=== PATIENT | female | born 1960 | race Caucasian/White ===

== ENCOUNTER → 2020-02-21 17:37 | Outpatient (CLI) | payer MEDICAID, SELFPAY ==
[2020-02-21 19:25] LABS: Hemoglobin A1C 6.8 % (4.0-6.0)
== END ==
PROVIDERS: Visit Provider Family Medicine
DX: E11.9 Type 2 diabetes mellitus without complications (principal)
CPT/HCPCS: 83036

== ENCOUNTER → 2020-04-15 14:41 | Outpatient (CLI) | payer MEDICAID, SELFPAY ==
[2020-04-21 19:07] LABS: Aspergillus flavus Negative (Neg:<1:1); Aspergillus fumigatus Negative (Neg:<1:1); Aspergillus niger Negative (Neg:<1:1); Blastomyces Antibody Negative (Neg:<1:1); Histoplasma Gal'mannan Ag Ur <0.5 (<0.5 ng/mL)
== END ==
PROVIDERS: Visit Provider Internal Medicine Pulmonary Disease
DX: J84.10 Pulmonary fibrosis, unspecified (principal)
CPT/HCPCS: 36415; 86606; 86612; 86698; 87385

== ENCOUNTER → 2020-05-01 14:30 | Outpatient (CLI) | payer MEDICAID, SELFPAY ==
--- NOTE | 2020-05-01 | CT_ITS ---
PROCEDURE: CT CHEST WO CON CLINICAL INDICATION: PULMONARY LESION pulmonary lesion smoker no prior studies histoplasmosis infection, pulmonary cavitary lesions COMPARISON: No exams were available for comparison TECHNIQUE: Axial images obtained with sagittal and coronal reformats. All CT scans at the facility use one or more dose reduction, viz: automated exposure control, ma/kV adjustment per patient size (including targeted exams where dose is matched to indication, i.e. head), or iterative reconstruction technique. FINDINGS: There are no old exams available for comparison. These would be very helpful if available. No mediastinal or hilar mass. There is a small hiatal hernia with nonspecific thickening of the esophagus and the GE junction. No mediastinal or hilar adenopathy. There are few small mediastinal lymph nodes. There are numerous cavitary lesions in both lungs. The largest cavitation is in the upper lobe on the left measuring 7.2 by 6.9 by 5.6 cm. Wall of this cavity is somewhat thickened and nodular with the wall measuring up 2 8 mm in thickness. There is suggestion of a small air-fluid level posteriorly within this cavity. There are other smaller cavities in the right upper lobe and left lower lobe. There is dense consolidation within both lower lobes.. There are multiple central lucencies within these areas of consolidation which could be related to areas of cavitation/necrosis or air alveolar g. Small nodular densities noted in the right upper lobe inferiorly measuring 8 mm with a central cavitation. No layering pleural effusions are evident. There is evidence of COPD with hyperinflation. Centrilobular emphysematous changes are noted. There is some mild bronchial thickening. In the left upper lobe there is a 9 mm nodule with possible minimal developing cavitation superiorly cavitating nodules present in the left lower lobe anteriorly at 10 mm. Upper abdominal images show prior cholecystectomy. No acute bony anomalies are evident IMPRESSION: 1. Numerous cavitating lesions along with bilateral areas of consolidation. These findings are compatible with active histoplasmosis or tuberculosis. 2. COPD/centrilobular emphysema 3. There is thickening of the esophagus and gastroesophageal junction. This is nonspecific and may only be due to nondistention. Neoplasm or esophagitis is also considered in the differential diagnosis. Dictated by: Robbin Olvera MD 05/02/2020 11:26 Robbin Olvera MD in [place] 05/02/2020 11:26
== END ==
PROVIDERS: PCP Family Medicine; Visit Provider Internal Medicine Pulmonary Disease
DX: J98.4 Other disorders of lung (principal)
CPT/HCPCS: 71250; 87070; 87116; 87186; 87205; 87206

== ENCOUNTER → 2020-06-20 11:57 | Outpatient (CLI) | payer MEDICAID, SELFPAY ==
[2020-06-20 14:54] LABS: Chloride 100 mmol/L (98-107); Sodium 135 mmol/L (136-145)
[2020-06-20 14:56] LABS: Alanine Aminotransferase 20 U/L (12-78); Aspartate Amino Transferase 26 U/L (14-36); Blood Urea Nitrogen 20 mg/dl (7-17); Estimated Glomerular Filt Rate 57 ml/min (>60); GFR (African American) 68 ML/MIN (>60)
[2020-06-20 14:57] LABS: Albumin Level 3.9 g/dl (3.5-5.0); Albumin/Globulin Ratio 1.2 (1.1-1.8); Alkaline Phosphatase 120 U/L (38-126); Bilirubin,Total 0.2 mg/dl (0.2-1.3); Calcium 9.4 mg/dl (8.4-10.2); Carbon Dioxide 29 mmol/L (22.0-30.0); Globulin 3.3 g/dL (1.3-3.2); Glucose 92 mg/dl (74-100); Total Protein,Serum 7.2 g/dl (6.3-8.2)
== END ==
PROVIDERS: Visit Provider Internal Medicine Pulmonary Disease
DX: J98.4 Other disorders of lung (principal); B39.2 Pulmonary histoplasmosis capsulati, unspecified
CPT/HCPCS: 36415; 80053; 80299

== ENCOUNTER → 2020-08-06 13:28 | Outpatient (CLI) | payer MEDICAID, SELFPAY | PROVIDERS: Visit Provider Internal Medicine Pulmonary Disease | DX: Z51.81 Encounter for therapeutic drug level monitoring (principal) | CPT/HCPCS: 36415; 80299 ==

== ENCOUNTER → 2020-08-19 13:30 | Outpatient (CLI) | payer MEDICAID, SELFPAY ==
[2020-08-19 14:41] LABS: Chloride 99 mmol/L (98-107); Potassium 4.9 mmoL/L (3.5-5.1); Sodium 136 mmol/L (136-145)
[2020-08-19 14:43] LABS: Alanine Aminotransferase 14 U/L (12-78); Aspartate Amino Transferase 23 U/L (14-36); Blood Urea Nitrogen 19 mg/dl (7-17); Estimated Glomerular Filt Rate 64 ml/min (>60); GFR (African American) 77 ML/MIN (>60)
[2020-08-19 14:44] LABS: Albumin/Globulin Ratio 1.2 (1.1-1.8); Alkaline Phosphatase 128 U/L (38-126); Anion Gap 10.9 mEq/L (5-15); Bilirubin,Total 0.3 mg/dl (0.2-1.3); Calcium 10.1 mg/dl (8.4-10.2); Carbon Dioxide 31 mmol/L (22.0-30.0); Globulin 3.4 g/dL (1.3-3.2); Glucose 110 mg/dl (74-100); Total Protein,Serum 7.4 g/dl (6.3-8.2)
[2020-08-24 18:07] LABS: Histoplasma Gal'mannan Ag Ur <0.5 (<0.5 ng/mL)
== END ==
PROVIDERS: Visit Provider Internal Medicine Pulmonary Disease
DX: B39.2 Pulmonary histoplasmosis capsulati, unspecified (principal); J98.4 Other disorders of lung
CPT/HCPCS: 36415; 80053; 87040; 87385

== ENCOUNTER → 2020-09-12 13:05 | Outpatient (CLI) | payer MEDICAID, SELFPAY ==
--- NOTE | 2020-09-12 13:05 | CT_ITS ---
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 All CT scans at the facility use one or more dose reduction, viz: automated exposure control, ma/kV adjustment per patient size (including targeted exams where dose is matched to indication, i.e. head), or iterative reconstruction technique. FINDINGS: HEART AND MEDIASTINAL STRUCTURES: No mediastinal or hilar mass or adenopathy. LUNGS AND PLEURAL SPACES: Numerous areas of cavitation and consolidation are once again noted. The largest cavities in the left apex measuring 7 x 6.3 cm transverse and AP previously measuring 7 x 7.8 cm transverse and AP. The cody of the cavities are somewhat thickened as before. Additional thick-walled cavity is present in the right upper lobe measuring 6.6 by 2.5 cm not significantly changed in size. There is some increase in wall thickening versus posterior layering secretions in the posterior aspect of this lesion. A prominent area of consolidation is present in the right lower lobe. This has decreased in size. There are internal areas of cavitation within this area of consolidation. Centrilobular emphysematous changes are present. A nodular density is present in the left lower lobe measuring 3 by 1.5 cm and has developed since the previous exam. Other nodular areas have improved or resolved. Consolidation is present in the superior segment of the left lower lobe and in the left upper lobe posteriorly which has shown some improvement. There are multiple nodular opacities scattered throughout both lungs many of which are unchanged. Consolidation is present in the right upper lobe centrally slightly improved with some decrease in cavitation. BONY STRUCTURES: No acute bony abnormalities apparent. UPPER ABDOMEN: There is a small hiatal hernia. Nonspecific thickening of the esophagus. ADDITIONAL FINDINGS: No other significant abnormalities. IMPRESSION: Abnormal CT of the chest. There are multiple thick-walled cavities, areas of consolidation, and bilateral nodular lesions. There has been a mixed response with some improvement in cavitation and consolidation with some new nodular opacities noted as described above. There is underlying centrilobular emphysema. Persistent esophageal thickening with small hiatal hernia Dictated by: Robbin Olvera MD 09/13/2020 08:08 Robbin Olvera MD in [facility] 09/13/2020 08:08
--- NOTE | 2020-09-12 13:05 | MM_ITS ---
PROCEDURE: MM DIG SCREENING MAMM BI W/CAD Digital Breast Tomosynthesis Included CLINICAL INDICATION: screening There is a history of breast cancer in the patient's mother. COMPARISON: Previous films cannot be obtained TECHNIQUE: Standard CC and MLO images and 3D Tomosynthesis was obtained. R2 CAD reviewed. FINDINGS: Moderate diffuse somewhat heterogenic fibroglandular densities are seen in both breasts. There is minimal arterial calcification bilaterally. There is a small nodular density central portion right breast with primarily benign features however since there are no previous studies for comparison recommend the patient return for spot compression views and ultrasound for additional evaluation. There are no suspicious microcalcifications. There are fatty replaced nodes in both axilla. IMPRESSION: Moderate breast density with asymmetric density right breast BI-RAD Category: 0 Need Additional Imaging Evaluation FOLLOW-UP: IMM Immediate Follow-up Recommended (A letter has been sent to the patient regarding results of the study.) Dictated by: Dr. Janusz Bhagat MD 09/18/2020 08:37 Dr. Janusz Bhagat MD in [place] 09/18/2020 08:37
[2020-09-12 15:20] VITALS: PULSE 67; PULSE 69
== END ==
PROVIDERS: PCP Family Medicine; Visit Provider Internal Medicine Pulmonary Disease
DX: Z12.31 Encounter for screening mammogram for malignant neoplasm of breast (principal); B39.2 Pulmonary histoplasmosis capsulati, unspecified; J98.4 Other disorders of lung
CPT/HCPCS: 71250; 77063; 77067; 87070; 87205; 87220; 94060; 94640; 94726; 94729

== ENCOUNTER → 2020-10-16 13:37 | Outpatient (CLI) | payer MEDICAID, SELFPAY ==
--- NOTE | 2020-10-16 13:38 | US_ITS ---
PROCEDURE: MM DIG MAMM DX UNILAT RT CAD Digital Breast Tomosynthesis Included CLINICAL INDICATION: ABN MAMM RT BREAST COMPARISON: MG MM DIG SCREENING MAMM BI W/CAD from 09/12/2020 US US BREAST RT COMPLETE from 10/16/2020 TECHNIQUE: Standard CC and MLO images and 3D Tomosynthesis was obtained. R2 CAD reviewed. FINDINGS: There is average fibroglandular tissue. No suspicious nodule is evident. Spot-compression views show some asymmetry in the retroareolar region felt to represent fibroglandular tissue. Right breast ultrasound: At 3 o'clock there are 2 cysts 1 of which is septated and measures 8 mm and the adjacent cyst measures 4 mm. At 3 o'clock there is also some ductal dilatation. At 11 o'clock there is a 5 mm hypoechoic area which may be due to small cyst or fibroglandular tissue. IMPRESSION: Probably benign features of the right breast. Recommend six-month sonographic and mammographic follow-up. BI-RAD Category: 3 Probably Benign Finding Short Term Follow-up FOLLOW-UP: 6M 6Month Follow-up (A letter has been sent to the patient regarding results of the study.) Dictated by: Robbin Olvera MD 10/21/2020 10:52 Robbin Olvera MD in [place] 10/21/2020 10:52
== END ==
PROVIDERS: PCP Family Medicine; Visit Provider Family Medicine
DX: R92.8 Other abnormal and inconclusive findings on diagnostic imaging of breast (principal)
CPT/HCPCS: 76641; 77061; 77065; G0279

== ENCOUNTER → 2020-10-21 15:16 | Outpatient (CLI) | payer MEDICAID, SELFPAY ==
[2020-10-21 16:31] LABS: Chloride 105 mmol/L (98-107); Potassium 5.3 mmoL/L (3.5-5.1); Sodium 136 mmol/L (136-145)
[2020-10-21 16:33] LABS: Blood Urea Nitrogen 17 mg/dl (7-17); Estimated Glomerular Filt Rate 56 ml/min (>60); GFR (African American) 68 ML/MIN (>60)
[2020-10-21 16:34] LABS: Alanine Aminotransferase 16 U/L (12-78); Albumin Level 4.1 g/dl (3.5-5.0); Albumin/Globulin Ratio 1.3 (1.1-1.8); Alkaline Phosphatase 131 U/L (38-126); Anion Gap 10.3 mEq/L (5-15); Aspartate Amino Transferase 25 U/L (14-36); Bilirubin,Total 0.3 mg/dl (0.2-1.3); Carbon Dioxide 26 mmol/L (22.0-30.0); Globulin 3.2 g/dL (1.3-3.2); Total Protein,Serum 7.3 g/dl (6.3-8.2)
[2020-10-21 16:35] LABS: Calcium 10.1 mg/dl (8.4-10.2); Glucose 116 mg/dl (74-100)
[2020-10-21 16:40] LABS: C-Reactive Protein 1.5 mg/L (0-4)
== END ==
PROVIDERS: Visit Provider Internal Medicine Pulmonary Disease
DX: R06.00 Dyspnea, unspecified (principal); B39.2 Pulmonary histoplasmosis capsulati, unspecified
CPT/HCPCS: 36415; 80053; 86140

== ENCOUNTER → 2020-12-19 13:56 | Outpatient (CLI) | payer MEDICAID, SELFPAY ==
--- NOTE | 2020-12-19 13:56 | CT_ITS ---
PROCEDURE: CT CHEST WO CON CLINICAL INDICATION: Follow-up histoplasmosis with cough and chest pain Abnormal CT No new symptoms Prior 09/12/20 COMPARISON: CT CT CHEST WO CON from 09/12/2020 TECHNIQUE: Axial images obtained with sagittal and coronal reformats. All CT scans at the facility use one or more dose reduction, viz: automated exposure control, ma/kV adjustment per patient size (including targeted exams where dose is matched to indication, i.e. head), or iterative reconstruction technique. FINDINGS: HEART AND MEDIASTINAL STRUCTURES: No mediastinal or hilar mass. There is mild diffuse esophageal thickening. There is a small hiatal hernia. There are some contents within the esophagus. Reflux, dysmotility, or distal obstruction is a consideration. Barium swallow may provide further evaluation. LUNGS AND PLEURAL SPACES: COPD with centrilobular emphysema. Cavitation is present in the left upper lobe with a mildly thickened wall. The cavity is smaller compared to the previous exam measuring 6 x 5.7 cm previously measuring 7 x 6.4 cm. In the right apex previous area of cavitation now appears more solid measuring 6 by 2 cm previously 6.6 x 2.5 cm. There is a small area of cavitation anteriorly in this region. This may be fluid-filled as opposed to a partially aerated cavity as before. Satellite nodular densities project from this area. The numerous parenchymal opacities are once again noted in both lungs and do not appear significantly changed. The largest parenchymal opacities in the right lower lobe at 3.4 cm not significantly changed. There is some bronchiectasis anterior to this area with associated parenchymal opacification. This area is 4.4 cm and may be slightly smaller. Small satellite nodules are also present at this region. Scattered parenchymal opacities are present on the left. There is an area of cavitation with thick wall in the left lower lobe measuring 3 by 1 cm not significantly changed. A thick-walled cavity is present in the left upper lobe measuring 6 x 5.7 cm previously 7 x 6.4 cm. There is some nodularity of this cavity. Bronchiectasis is present in the left upper lobe posteriorly. Irregular cavity left lower lobe superior segment unchanged. No new nodular opacities are apparent. No effusions. BONY STRUCTURES: No acute bony abnormalities apparent. UPPER ABDOMEN: Unremarkable. ADDITIONAL FINDINGS: No other significant abnormalities. IMPRESSION: 1. Multiple thick-walled cavities with areas of bronchiectasis and nodular opacities as detailed above in keeping with patient's history of histoplasmosis. Overall the findings are slightly improved compared to the previous exam. 2. COPD/centrilobular emphysema. 3. Persistent esophageal thickening with debris in the esophagus suggesting delayed emptying or reflux. Dictated by: Robbin Olvera MD 12/20/2020 08:12 Robbin Olvera MD in [place] 12/20/2020 08:12
== END ==
PROVIDERS: PCP Family Medicine; Visit Provider Internal Medicine Pulmonary Disease
DX: B39.2 Pulmonary histoplasmosis capsulati, unspecified (principal); R91.1 Solitary pulmonary nodule
CPT/HCPCS: 71250

== ENCOUNTER → 2021-02-27 16:29 | Outpatient (CLI) | payer MEDICAID, SELFPAY ==
[2021-02-27 18:41] LABS: Alanine Aminotransferase 18 U/L (12-78); Albumin Level 4.6 g/dl (3.5-5.0); Alkaline Phosphatase 124 U/L (38-126); Aspartate Amino Transferase 26 U/L (14-36); Bilirubin,Direct 0.5 mg/dl (0.0-0.4); Bilirubin,Total 0.5 mg/dl (0.2-1.3); Blood Urea Nitrogen 18 mg/dl (7-17); Calcium 10.1 mg/dl (8.4-10.2); Carbon Dioxide 28 mmol/L (22.0-30.0); Chloride 96 mmol/L (98-107); Estimated Glomerular Filt Rate 23 ml/min (>60); GFR (African American) 27 ML/MIN (>60); Glucose 112 mg/dl (74-100); Sodium 134 mmol/L (136-145); Total Protein,Serum 7.9 g/dl (6.3-8.2)
== END ==
PROVIDERS: Family Medicine; Visit Provider Internal Medicine Pulmonary Disease
DX: J98.4 Other disorders of lung (principal); B39.9 Histoplasmosis, unspecified
CPT/HCPCS: 36415; 80048; 80076

== ENCOUNTER → 2021-02-27 17:27 | Outpatient (CLI) | payer MEDICAID, SELFPAY ==
[2021-02-27 19:58] LABS: Alanine Aminotransferase 17 U/L (12-78); Albumin Level 4.4 g/dl (3.5-5.0); Alkaline Phosphatase 117 U/L (38-126); Aspartate Amino Transferase 24 U/L (14-36); Bilirubin,Direct 0.5 mg/dl (0.0-0.4); Bilirubin,Total 0.5 mg/dl (0.2-1.3); Total Protein,Serum 7.6 g/dl (6.3-8.2)
== END ==
PROVIDERS: Internal Medicine Pulmonary Disease; Visit Provider Family Medicine
DX: B39.2 Pulmonary histoplasmosis capsulati, unspecified (principal)
CPT/HCPCS: 80076

== ENCOUNTER → 2021-03-13 17:00 | Outpatient (CLI) | payer MEDICAID, SELFPAY ==
[2021-03-13 17:29] LABS: Alanine Aminotransferase 11 U/L (12-78); Albumin Level 3.6 g/dl (3.5-5.0); Albumin/Globulin Ratio 1.2 (1.1-1.8); Alkaline Phosphatase 114 U/L (38-126); Anion Gap 9.9 mEq/L (5-15); Aspartate Amino Transferase 20 U/L (14-36); Bilirubin,Total 0.4 mg/dl (0.2-1.3); Blood Urea Nitrogen 24 mg/dl (7-17); Calcium 8.9 mg/dl (8.4-10.2); Carbon Dioxide 27 mmol/L (22.0-30.0); Chloride 104 mmol/L (98-107); Estimated Glomerular Filt Rate 56 ml/min (>60); GFR (African American) 68 ML/MIN (>60); Globulin 2.9 g/dL (1.3-3.2); Glucose 128 mg/dl (74-100); Potassium 4.9 mmoL/L (3.5-5.1); Sodium 136 mmol/L (136-145); Total Protein,Serum 6.5 g/dl (6.3-8.2)
== END ==
PROVIDERS: Visit Provider Family Medicine
DX: E11.9 Type 2 diabetes mellitus without complications (principal); E78.5 Hyperlipidemia, unspecified; J44.9 Chronic obstructive pulmonary disease, unspecified
CPT/HCPCS: 80053

== ENCOUNTER → 2021-04-29 14:13 | Outpatient (CLI) | payer MEDICAID, SELFPAY ==
[2021-04-29 14:46] LABS: ABG Base Excess 2.1 mmol/L (-2.4-2.3); ABG HCO3 26.2 mmhg (22.0-26.0); ABG Oxygen Saturation 94 % (90-100); ABG PCO2 39.6 mmhg (35.0-45.0); ABG PH 7.44 mmol/L (7.35-7.45); ABG TCO2 27.4 mmhg (23-27)
[2021-04-29 14:47] LABS: Allen's Test ACCEPTABLE; Oxygen 2LPM %; Source R RADIAL
[2021-04-29 15:31] LABS: Basophils % 0.2 % (0.1-2.0); Eosinophils # 0.2 K/mm3 (0.0-0.4); Eosinophils % 1.2 % (0.1-12.0); Hematocrit 39.8 % (37.0-47.0); Hemoglobin 12.5 g/dL (12.2-16.2); Lymphocytes # 1.8 K/mm3 (0.7-4.5); Lymphocytes % 14.4 % (10-50); Mean Corpuscular HGB Conc 31.3 g/dL (31.8-35.4); Mean Corpuscular Hemoglobin 27.9 pg (27.0-31.2); Mean Corpuscular Volume 89.2 fl (81-99); Mean Platelet Volume 8.4 fl (7.4-10.4); Monocytes # 0.7 K/mm3 (0.1-1.0); Monocytes % 5.6 % (1.7-9.3); Neutrophils # 10.1 K/mm3 (1.8-7.8); Neutrophils % 78.7 % (37.0-80.0); Platelet Count 310 K/mm3 (142-424); Red Blood Count 4.47 M/mm3 (4.20-5.40); Red Cell Distribution Width 14.1 % (11.5-17.5); White Blood Count 12.8 K/mm3 (4.8-10.8)
[2021-04-29 15:58] LABS: Alanine Aminotransferase 16 U/L (12-78); Albumin Level 3.4 g/dl (3.5-5.0); Alkaline Phosphatase 104 U/L (38-126); Aspartate Amino Transferase 20 U/L (14-36); Bilirubin,Indirect 0.3 mg/dL (0.0-0.9); Bilirubin,Total 0.3 mg/dl (0.2-1.3); Bilirubin,Unconjugated 0.3 mg/dL (0.0-1.1)
[2021-04-29 16:06] LABS: C-Reactive Protein 1.5 mg/L (0-4)
== END ==
PROVIDERS: Visit Provider Internal Medicine Pulmonary Disease
DX: R06.00 Dyspnea, unspecified (principal); J45.909 Unspecified asthma, uncomplicated; J98.4 Other disorders of lung
CPT/HCPCS: 36415; 80076; 82803; 85025; 86140

== ENCOUNTER → 2021-05-01 08:07 | Outpatient (CLI) | payer MEDICAID, SELFPAY ==
--- NOTE | 2021-05-01 08:13 | CT_ITS ---
PROCEDURE: CT CHEST WO CON CLINICAL INDICATION: Pulmonary Histoplasmosis COMPARISON: CT CT CHEST WO CON from 05/01/[address] CHEST WO CON from 12/19/2020 TECHNIQUE: Axial images obtained with sagittal and coronal reformats. All CT scans at the facility use one or more dose reduction, viz: automated exposure control, ma/kV adjustment per patient size (including targeted exams where dose is matched to indication, i.e. head), or iterative reconstruction technique. FINDINGS: HEART AND MEDIASTINAL STRUCTURES: No mediastinal mass or hilar mass apparent. There is mild thickening of the esophagus throughout its course nonspecific. There is a small hiatal hernia. LUNGS AND PLEURAL SPACES: Centrilobular emphysema with pulmonary fibrotic changes. Left upper lobe cavity once again noted with thickened wall. There is nodularity along the superior aspect of the cavity as before. Right upper lobe mass is once again noted slightly larger on today's study measuring 6.5 by 2.1 cm by 2.6 cm longitudinal, transverse, and cranial to caudal previously 6.1 x 2.1 x 2.3 cm. Nodularity is present along the medial and inferior aspect of the mass similar to the previous exam. There are other smaller parenchymal opacities present. Previously parenchymal opacity noted in the right upper lobe posteriorly. Now there is bronchiectasis in this region. Numerous small pulmonary opacities are noted on both sides. In the superior segment of the right lower lobe there is a cavitating mass with numerous small cavities measuring 3.9 by 3 cm previously 4.4 by 3 cm. Small satellite nodules are present in this region not significantly changed. There is a mass in the left lower lobe laterally at 2.4 cm transverse previously 2.7 cm transverse. The volume loss with bronchiectasis noted in the left upper lobe medially. Bronchiectasis is present in the left upper lobe posteriorly associated with nodular opacities. In the left upper lobe centrally there is an area of parenchymal opacity now more solid-appearing previously demonstrating small cavities. In the left upper lobe laterally there was a 1.8 by 1 cm nodule now 1.7 by 0.9 cm nodule. No effusions are evident. BONY STRUCTURES: No acute bony abnormalities apparent. UPPER ABDOMEN: Unremarkable. ADDITIONAL FINDINGS: No other significant abnormalities. IMPRESSION: Abnormal chest CT with multiple cavitating lesions and parenchymal opacities with a mixed response. The largest mass in the right upper lobe is slightly increased in size while other smaller masses have slightly decreased in size. Please see above for detail.. The largest cavitating lesion in the left upper lobe at the apex is not significantly changed. Overall findings are consistent with patient's given history of histoplasmosis with associated COPD/centrilobular emphysema Dictated by: Robbin Olvera MD 05/04/2021 13:51 Robbin Olvera MD in [place] 05/04/2021 13:51
== END ==
PROVIDERS: PCP Family Medicine; Visit Provider Internal Medicine Pulmonary Disease
DX: R91.1 Solitary pulmonary nodule (principal)
CPT/HCPCS: 71250; 87070; 87077; 87186; 87205

== ENCOUNTER → 2021-05-14 13:39 | Outpatient (CLI) | payer MEDICAID, SELFPAY ==
--- NOTE | 2021-05-14 13:40 | MM_ITS ---
PROCEDURE: MM DIG MAMM DX UNILAT RT CAD Digital Breast Tomosynthesis Included Right breast ultrasound complete CLINICAL INDICATION: 6 mth f/u COMPARISON: MG MM DIG SCREENING MAMM BI W/CAD from 09/12/2020 US US BREAST RT COMPLETE from 10/16/2020 MG MM DIG MAMM DX UNILAT RT CAD from 10/16/2020 US US BREAST RT COMPLETE from 05/14/2021 TECHNIQUE: Standard CC and MLO images and 3D Tomosynthesis was obtained. R2 CAD reviewed. FINDINGS: The breasts are heterogeneously dense which may obscure small masses. No malignant appearing mass or malignant-appearing microcalcification. Benign-appearing calcifications are present. There is a benign-appearing nodule in the deep central 1/3 of the right breast at 4 mm not significantly changed.. Right breast ultrasound: There is some ductal ectasia in the 3 o'clock region of the right breast near the nipple persistent hypoechoic area at 11 o'clock at 8 x 2 mm not significantly changed and may be due to fibroglandular tissue.. No malignant appearing nodules evident. IMPRESSION: Benign findings. No evidence of malignancy. Recommend resume bilateral screening mammogram in 6 months BI-RAD Category: 2 Benign Finding FOLLOW-UP: 6M 6 Month Follow-up (A letter has been sent to the patient regarding results of the study.) Dictated by: Robbin Olvera MD 05/20/2021 14:08 Robbin Olvera MD in [place] 05/20/2021 14:08
[2021-05-14 14:06] LABS: Chloride 100 mmol/L (98-107); Sodium 136 mmol/L (136-145)
[2021-05-14 14:09] LABS: Alanine Aminotransferase 15 U/L (12-78); Albumin Level 3.8 g/dl (3.5-5.0); Albumin/Globulin Ratio 1.3 (1.1-1.8); Alkaline Phosphatase 120 U/L (38-126); Aspartate Amino Transferase 24 U/L (14-36); Bilirubin,Total 0.3 mg/dl (0.2-1.3); Blood Urea Nitrogen 15 mg/dl (7-17); Calcium 9.8 mg/dl (8.4-10.2); Carbon Dioxide 29 mmol/L (22.0-30.0); Estimated Glomerular Filt Rate 56 ml/min (>60); GFR (African American) 68 ML/MIN (>60); Globulin 2.9 g/dL (1.3-3.2); Glucose 117 mg/dl (74-100); Total Protein,Serum 6.7 g/dl (6.3-8.2)
== END ==
PROVIDERS: PCP Family Medicine; Visit Provider Family Medicine
DX: R92.8 Other abnormal and inconclusive findings on diagnostic imaging of breast (principal)
CPT/HCPCS: 76641; 77061; 77065; 80053; G0279

== ENCOUNTER → 2021-05-14 13:45 | Outpatient (CLI) | payer MEDICAID, SELFPAY | PROVIDERS: Visit Provider Family Medicine | DX: N28.9 Disorder of kidney and ureter, unspecified (principal) | CPT/HCPCS: 80053 ==

== ENCOUNTER → 2021-09-30 14:48 | Outpatient (CLI) | payer OTHER, SELFPAY ==
[2021-09-30 15:30] VITALS: PULSE 70
== END ==
PROVIDERS: PCP Family Medicine; Visit Provider Internal Medicine Pulmonary Disease
DX: R06.09 Other forms of dyspnea (principal)
CPT/HCPCS: 94060; 94618; 94640; 94727; 94729

== ENCOUNTER → 2021-11-10 14:12 | Outpatient (CLI) | payer OTHER, SELFPAY ==
--- NOTE | 2021-11-10 14:18 | CT_ITS ---
FINAL REPORT TECHNIQUE: Axial CT images were performed from the lung apices through the upper abdomen. Coronal reformats were submitted. This study was performed with techniques to keep radiation doses as low as reasonably achievable (ALARA). Individualized dose reduction techniques using automated exposure control or adjustment of mA and/or kV according to the patient's size were employed. CLINICAL HISTORY: Pulm Histoplasmosis COMPARISON: 05/01/2021 FINDINGS: There is no axillary adenopathy. There is no hilar or mediastinal mass or adenopathy. There is moderate emphysema. There is a bulla or pneumatocele in the left upper thorax. There are multifocal pulmonary masses and nodules. In the medial right upper lobe, a nodule measures 5.9 cm and is stable. A cavitary lesion in the right lower lobe measures 4.2 cm and is stable in size but has increased cavitation. Other masses and nodules are visually stable. There is no new pulmonary abnormality. Limited images of the upper abdomen demonstrate the patient is status post cholecystectomy. IMPRESSION: Pulmonary masses and nodules are stable in size but there is increased cavitation of the right lower lobe lesion. Findings would be consistent with history of histoplasmosis. Reviewed, Interpreted and Dictated by Emeka Cuenca III, MD Transcribed by Joanie Jay Authenticated by Emeka Cuenca III, MD on 11/11/2021 08:45:16 AM [facility]
== END ==
PROVIDERS: PCP Family Medicine; Visit Provider Internal Medicine Pulmonary Disease
DX: R91.8 Other nonspecific abnormal finding of lung field (principal)
CPT/HCPCS: 71250

== ENCOUNTER → 2022-02-23 07:00 | Outpatient (CLI) | payer OTHER, SELFPAY ==
[2022-02-22 17:33] LABS: Chloride 99 mmol/L (98-107); Potassium 4.4 mmoL/L (3.5-5.1); Sodium 132 mmol/L (136-145)
[2022-02-22 17:35] LABS: Blood Urea Nitrogen 10 mg/dl (7-17); Estimated Glomerular Filt Rate 56 ml/min (>60); GFR (African American) 68 ML/MIN (>60)
[2022-02-22 17:36] LABS: Alanine Aminotransferase 14 U/L (12-78); Albumin Level 3.9 g/dl (3.5-5.0); Albumin/Globulin Ratio 1.4 (1.1-1.8); Alkaline Phosphatase 111 U/L (38-126); Anion Gap 9.4 mEq/L (5-15); Aspartate Amino Transferase 26 U/L (14-36); Bilirubin,Total 0.4 mg/dl (0.2-1.3); Carbon Dioxide 28 mmol/L (22.0-30.0); Globulin 2.8 g/dL (1.3-3.2); Glucose 113 mg/dl (74-100); Total Protein,Serum 6.7 g/dl (6.3-8.2)
[2022-02-22 17:52] LABS: Hemoglobin A1C 6.2 % (4.0-6.0)
== END ==
PROVIDERS: PCP Family Medicine; Visit Provider Family Medicine
DX: E78.5 Hyperlipidemia, unspecified (principal); Z79.899 Other long term (current) drug therapy
CPT/HCPCS: 80053; 83036

== ENCOUNTER → 2022-08-30 13:01 | Outpatient (CLI) | payer OTHER, SELFPAY ==
--- NOTE | 2022-08-30 13:03 | CA_ITS ---
FINAL REPORT TECHNIQUE: Color Doppler, duplex Doppler and hernandez scale sonography of the bilateral neck arterial vasculature was performed. Velocities were measured in the carotid arteries. Stenosis evaluation based on the validated velocity criteria. CLINICAL HISTORY: Bilateral Bruits, SMOKER, HOME O2, HTN,COPD FINDINGS: The peak systolic velocity of the right common carotid artery is 89 cm/s. The peak systolic velocity of the right internal carotid artery is 94 cm/s and end diastolic velocity 30 cm/s. A small amount of plaque is present. The right external carotid artery is patent. The right vertebral artery is patent with antegrade flow. The peak systolic velocity of the left common carotid artery is 118 cm/s. The peak systolic velocity of the left internal carotid artery is 85 cm/s and end diastolic velocity 29 cm/s. A small amount of plaque is present. The left external carotid artery is patent.The left vertebral artery is patent with antegrade flow. IMPRESSION: Less than 50% bilateral carotid stenoses. Bilateral patent vertebral arteries with antegrade flow. If indicated, CTA or MRA could further evaluate. Reviewed, Interpreted and Dictated by Jennifer Hubbard MD Transcribed by Kelin Greenfield Authenticated and [facility]
== END ==
PROVIDERS: PCP Family Medicine; Visit Provider Family Medicine
DX: R09.89 Other specified symptoms and signs involving the circulatory and respiratory systems (principal)
CPT/HCPCS: 93880

== ENCOUNTER → 2022-09-17 11:40 | Outpatient (CLI) | payer OTHER, SELFPAY ==
--- NOTE | 2022-09-17 11:48 | XR_ITS ---
FINAL REPORT CLINICAL HISTORY: left shoulder pain COMPARISON: None FINDINGS: LEFT SHOULDER Three views demonstrate no acute fracture or dislocation. The joint spaces appear normal. The visualized bony structures are well aligned. No soft tissue abnormality is seen. IMPRESSION: No acute process. Reviewed, Interpreted and Dictated by Emeka Cuenca III, MD Transcribed by Darlene Mercado Authenticated and [facility]
== END ==
PROVIDERS: PCP Family Medicine; Visit Provider Orthopaedic Surgery
DX: M25.512 Pain in left shoulder (principal)
CPT/HCPCS: 73030

== ENCOUNTER → 2022-09-17 14:53 | Outpatient (CLI) | payer OTHER, SELFPAY ==
[2022-09-17 15:47] LABS: Basophils # 0.1 K/mm3 (0-0.2); Basophils % 0.5 % (0.1-2.0); Eosinophils # 0.1 K/mm3 (0.0-0.4); Eosinophils % 0.7 % (0.1-12.0); Hematocrit 37.7 % (37.0-47.0); Hemoglobin 11.9 g/dL (12.2-16.2); Lymphocytes # 1.9 K/mm3 (0.7-4.5); Lymphocytes % 15.1 % (10-50); Mean Corpuscular HGB Conc 31.7 g/dL (31.8-35.4); Mean Corpuscular Hemoglobin 25.9 pg (27.0-31.2); Mean Corpuscular Volume 81.9 fl (81-99); Monocytes # 0.7 K/mm3 (0.1-1.0); Monocytes % 5.6 % (1.7-9.3); Neutrophils % 78.2 % (37.0-80.0); Platelet Count 469 K/mm3 (142-424); Red Blood Count 4.61 M/mm3 (4.20-5.40); Red Cell Distribution Width 15.5 % (11.5-17.5); White Blood Count 12.8 K/mm3 (4.8-10.8)
[2022-09-17 15:56] LABS: Alanine Aminotransferase 16 U/L (12-78); Albumin Level 3.8 g/dl (3.5-5.0); Albumin/Globulin Ratio 1.5 (1.1-1.8); Alkaline Phosphatase 125 U/L (38-126); Aspartate Amino Transferase 24 U/L (14-36); Bilirubin,Total 0.3 mg/dl (0.2-1.3); Blood Urea Nitrogen 14 mg/dl (7-17); Carbon Dioxide 28 mmol/L (22.0-30.0); Chloride 99 mmol/L (98-107); Chol/HDL Ratio 2.3 (1-3.5); Cholesterol 152 mg/dl (140-200); Estimated Glomerular Filt Rate 56 ml/min (>60); GFR (African American) 68 ML/MIN (>60); Globulin 2.6 g/dL (1.3-3.2); Glucose 145 mg/dl (74-100); HDL Cholesterol 66 mg/dl (40-60); Sodium 131 mmol/L (136-145); Total Protein,Serum 6.4 g/dl (6.3-8.2); Triglycerides 65 mg/dl (30-150); VLDL Cholesterol 13 mg/dL (0-40)
[2022-09-17 17:41] LABS: Anion Gap 8.4 mEq/L (5-15); Potassium 4.4 mmoL/L (3.5-5.1)
== END ==
PROVIDERS: PCP Family Medicine; Visit Provider Family Medicine
DX: I10 Essential (primary) hypertension (principal); E78.5 Hyperlipidemia, unspecified; R53.83 Other fatigue
CPT/HCPCS: 80053; 80061; 84443; 85025

== ENCOUNTER 2023-01-28 16:21 | Inpatient (IN) | payer MEDICAID, SELFPAY ==
[2023-01-28 16:33] VITALS: BP 150/87; PULSE 72; RESP 20; TEMP 35; O2SAT 95; BMI 28.1
--- NOTE | 2023-01-28 16:40 | HMH.EDGENADL ---
Discharge Plan Disposition Patient Disposition: Admitted Chief Complaint: Shortness of Breath/Dyspnea Prescriptions Prescriptions: No Action nitroglycerin [Nitrostat] 0.4 mg tablet, sublingual 0.4 mg SUBLINGUAL Q5-15M PRN Rx Instructions: do not exceed 3 doses per episode sodium polystyrene sulfonate 15 gram/60 mL suspension 15 g PO BID 5 Days Qty: 600 0RF lamotrigine 150 mg tablet See Rx Instructions .ROUTE .COMPLEX Qty: 180 3RF Dose Instruction: TAKE 1 TABLET BY MOUTH 2 TIMES A DAY Rx Instructions: TAKE 1 TABLET BY MOUTH 2 TIMES A DAY albuterol sulfate 90 mcg/actuation aerosol powdr breath activated 1 inh INHALATION Q4-6H PRN (Reason: shortness of breath) Qty: 1 10RF acetaminophen-codeine 300-30 mg tablet 1 tab PO TID PRN (Reason: pain) Qty: 90 3RF potassium chloride 10 mEq capsule, extended release 10 meq PO atorvastatin 40 mg tablet See Rx Instructions .ROUTE .COMPLEX Qty: 90 3RF Dose Instruction: TAKE 1 TABLET BY MOUTH AT BEDTIME Rx Instructions: TAKE 1 TABLET BY MOUTH AT BEDTIME isosorbide mononitrate 30 mg tablet extended release 24 hr See Rx Instructions .ROUTE .COMPLEX Qty: 90 3RF Dose Instruction: TAKE 1 TABLET BY MOUTH ONCE A DAY Rx Instructions: TAKE 1 TABLET BY MOUTH ONCE A DAY ergocalciferol (vitamin D2) 1,250 mcg (50,000 unit) capsule See Rx Instructions .ROUTE .COMPLEX Qty: 12 5RF Dose Instruction: TAKE 1 CAPSULE BY MOUTH EVERY WEEK Rx Instructions: TAKE 1 CAPSULE BY MOUTH EVERY WEEK furosemide 80 mg tablet See Rx Instructions .ROUTE .COMPLEX Qty: 90 2RF Dose Instruction: TAKE 1/2 TABLET BY MOUTH 2 TIMES DAILY FOR 90 DAYS Rx Instructions: TAKE 1/2 TABLET BY MOUTH 2 TIMES DAILY FOR 90 DAYS fluoxetine 40 mg capsule See Rx Instructions .ROUTE .COMPLEX Qty: 90 3RF Dose Instruction: TAKE 1 CAPSULE BY MOUTH EVERY DAY Rx Instructions: TAKE 1 CAPSULE BY MOUTH EVERY DAY omeprazole 40 mg capsule,delayed release(DR/EC) See Rx Instructions .ROUTE .COMPLEX Qty: 90 3RF Dose Instruction: TAKE 1 CAPSULE BY MOUTH EVERY DAY Rx Instructions: TAKE 1 CAPSULE BY MOUTH EVERY DAY posaconazole 200 mg/5 mL (40 mg/mL) suspension 200 mg PO TID 90 Days Qty: 1350 2RF Rx Instructions: must administer with a meal/food (DME) blood-glucose meter [OneTouch Ultra2 Meter] Kit See Rx Instructions .Route Qty: 1 0RF Rx Instructions: As directed (DME) Blood Glucose Test Strip See Rx Instructions MISCELLANE .MEDSUPPLY Qty: 10 0RF Rx Instructions: As directed (DME) OneTouch Ultra Test Strip See Rx Instructions .ROUTE .COMPLEX Qty: 100 10RF Dose Instruction: CHECK THREE TIMES DAILY OR DIRECTED Rx Instructions: CHECK THREE TIMES DAILY OR DIRECTED diltiazem HCl 180 mg capsule,extended release 24hr See Rx Instructions .ROUTE .COMPLEX Qty: 90 3RF Dose Instruction: TAKE 1 CAPSULE BY MOUTH EVERY DAY Rx Instructions: TAKE 1 CAPSULE BY MOUTH EVERY DAY albuterol sulfate 2.5 mg /3 mL (0.083 %) solution for nebulization See Rx Instructions .ROUTE .COMPLEX Qty: 180 3RF Dose Instruction: USE 1 AMPULE IN NEBULIZER EVERY 6 HOURS. Rx Instructions: USE 1 AMPULE IN NEBULIZER EVERY 6 HOURS. bisoprolol fumarate 10 mg tablet See Rx Instructions .ROUTE .COMPLEX Qty: 60 5RF Dose Instruction: TAKE 1 TABLET BY MOUTH 2 TIMES A DAY Rx Instructions: TAKE 1 TABLET BY MOUTH 2 TIMES A DAY (DME) lancets [OneTouch Delica Plus Lancet] 33 gauge misc See Rx Instructions .ROUTE .COMPLEX Qty: 100 2RF Dose Instruction: CHECKS SUGAR 3 TO 4 TIMES A DAY Rx Instructions: CHECKS SUGAR 3 TO 4 TIMES A DAY fluticasone propionate 50 mcg/actuation spray,suspension See Rx Instructions .ROUTE .COMPLEX Qty: 16 10RF Dose Instruction: USE 1 SPRAY INTRANASAL EVERY 12 HOURS ADMIN
--- NOTE | 2023-01-28 16:48 | XR_ITS ---
PROCEDURE INFORMATION: Exam: XR Chest Exam date and time: 01/28/2023 5:25 PM Age: 62 years old Clinical indication: Dyspnea TECHNIQUE: Imaging protocol: Radiologic exam of the chest. Views: 1 view. COMPARISON: CT CHEST WO CON 28/01/2023 17:22 FINDINGS: Lungs: In correlation with CT images, multifocal nodular airspace disease appears unchanged to mildly improved. Emphysema. Bilateral architectural distortion of the lungs related to scarring. Bilateral apical scarring. Pleural spaces: Unremarkable. No pleural effusion. No pneumothorax. Heart/Mediastinum: Unremarkable. No cardiomegaly. Bones/joints: Unremarkable. IMPRESSION: In correlation with CT images, multifocal nodular airspace disease appears unchanged to mildly improved.
[2023-01-28 17:04] LABS: Basophils % 0.1 % (0.1-2.0); Eosinophils # 0.3 K/mm3 (0.0-0.4); Eosinophils % 1.5 % (0.1-12.0); Hematocrit 38.8 % (37.0-47.0); Hemoglobin 11.9 g/dL (12.2-16.2); Lymphocytes # 0.9 K/mm3 (0.7-4.5); Lymphocytes % 4.6 % (10-50); Mean Corpuscular HGB Conc 30.7 g/dL (31.8-35.4); Mean Corpuscular Hemoglobin 25.4 pg (27.0-31.2); Mean Corpuscular Volume 82.8 fl (81-99); Monocytes # 0.7 K/mm3 (0.1-1.0); Monocytes % 3.5 % (1.7-9.3); Neutrophils # 17.6 K/mm3 (1.8-7.8); Neutrophils % 90.4 % (37.0-80.0); Platelet Count 463 K/mm3 (142-424); Red Blood Count 4.68 M/mm3 (4.20-5.40); Red Cell Distribution Width 16.6 % (11.5-17.5); White Blood Count 19.5 K/mm3 (4.8-10.8)
[2023-01-28 17:07] LABS: Chloride 91 mmol/L (98-107); MANUAL DIFFERENTIAL MANUAL DIFFERENTIAL (MANUAL DIFF); Potassium 4.7 mmoL/L (3.5-5.1); Sodium 129 mmol/L (136-145)
[2023-01-28 17:09] LABS: Alanine Aminotransferase 21 U/L (12-78); Blood Urea Nitrogen 18 mg/dl (7-17); Creatinine Clearance Estimated 74 mL/min (50-200); Estimated Glomerular Filt Rate 63 ml/min (>60); GFR (African American) 77 ML/MIN (>60)
[2023-01-28 17:10] LABS: Albumin Level 4.3 g/dl (3.5-5.0); Albumin/Globulin Ratio 1.3 (1.1-1.8); Alkaline Phosphatase 109 U/L (38-126); Anion Gap 13.7 mEq/L (5-15); Aspartate Amino Transferase 31 U/L (14-36); Bilirubin,Total 0.2 mg/dl (0.2-1.3); Calcium 9.3 mg/dl (8.4-10.2); Carbon Dioxide 29 mmol/L (22.0-30.0); Globulin 3.2 g/dL (1.3-3.2); Glucose 143 mg/dl (74-100); Total Protein,Serum 7.5 g/dl (6.3-8.2)
--- NOTE | 2023-01-28 17:12 | CT_ITS ---
PROCEDURE INFORMATION: Exam: CT Chest Without Contrast; Diagnostic Exam date and time: 01/28/2023 5:22 PM Age: 62 years old Clinical indication: Dyspnea; Additional info: Pneumonia, fungal infection TECHNIQUE: Imaging protocol: Diagnostic computed tomography of the chest without contrast. Radiation optimization: All CT scans at this facility use at least one of these dose optimization techniques: automated exposure control; mA and/or kV adjustment per patient size (includes targeted exams where dose is matched to clinical indication); or iterative reconstruction. REPORTING DATA: Count of CT and Cardiac NM exams in prior 12 months: This patient has received 0 known CTs and 0 known cardiac nuclear medicine studies in the 12 months prior to the current study. COMPARISON: CT CHEST WO CON 10/11/2021 14:45 FINDINGS: Lungs: Right apical mass is decreased in size compared to prior study measuring 5.2 x 1.1 cm of previously 6.1 x 2.1 cm. Left apical cavitation is unchanged. 12 mm left upper lobe nodule image 15 series 3 is unchanged. The linear left apical fibrotic mass is decreased in size. Other scattered nodular opacities associated with pulmonary scars are unchanged. Moderate to severe centrilobular emphysema. Widespread airway thickening is favored to be related to smoking related lung injury. Pleural spaces: Unremarkable. No pneumothorax. No pleural effusion. Heart: Unremarkable. No cardiomegaly. No pericardial effusion. Coronary arteries: Coronary artery calcifications. Lymph nodes: Unremarkable. No enlarged lymph nodes. Vasculature: The aorta demonstrates severe atherosclerotic disease. Gallbladder and bile ducts: Gallbladder is absent. Bones/joints: Unremarkable. No acute fracture. Soft tissues: Unremarkable. Other findings: Architectural distortion of the low of this due to multifocal scarring. IMPRESSION: Multifocal nodular opacities are unchanged to decreased in size compared to prior study. This is compatible with atypical pneumonia in the appropriate clinical setting. COMMENTS: In the absence of a history or active diagnosis of lung cancer, it is recommended that this patient with emphysema be evaluated for enrollment in a low dose CT lung cancer screening program.
--- NOTE | 2023-01-28 17:12 | EXP.HP ---
History of Present Illness *Admission Date: 01/28/23 *Reason for visit:: shortness of breath *History of present illness: Ms. Dick is a 62-year-old female with COPD, tobacco use disorder, hypertension, history of histoplasmosis, who continues to smoke. She presented to the ER after being sent by her primary care doctor due to increased shortness of breath, oxygen requirement, and respiratory symptoms. States that she has been sick for the last month with increasing shortness of breath, wheezing, sputum production and has been on at least 2 rounds of antibiotics with failure of outpatient therapy. Presented to [facility] yesterday where they wanted to admit her but there were no beds available. Denies any nausea, vomiting, confusion. Does have some chest wall discomfort from coughing. States her lungs hurt . Normally on 3 L oxygen, has required 4 to 5 L of oxygen over the past few days. Sats at home have been dropping into the high 70s low 80s. Discussed case with patient's primary care and recommended he send her to the ER for evaluation. Discussed case with the ER physician, concerning findings of leukocytosis and increased oxygen requirement with failure of outpatient therapy. Agreed with admission. On evaluation, she is chronically ill-appearing. Satting low 90s on 4 L oxygen. Has a nonproductive cough. Hemodynamically stable [facility] Disclaimer: The information contained in this section may have been updated after the patient was seen, as this information can be updated by other users. Medical History Cavitary lesion of lung Cavitary lesion of lung Chronic hypoxemic respiratory failure COPD (chronic obstructive pulmonary disease) Diabetes mellitus Mood disorder Nocturnal hypoxemia Oxygen dependent Pulmonary histoplasmosis Tobacco abuse counseling Tobacco abuse disorder Surgical History History of appendectomy History of cardiac cath History of total hysterectomy Family History Cancer Social History Smoking Status: Current every day smoker alcohol intake: never substance use type: denies use current occupational status: disabled Travel in the last 8 weeks: None household members: spouse Review of Systems Review of Systems Review of systems (narrative): 14 point review of systems performed, pertinent positives and negatives as per [facility] Meds Home Medications and Allergies Home Medications Medication Instructions Recorded Confirmed Type nitroglycerin 0.4 mg sublingual 0.4 mg sublingual Q5-15M PRN 02/21/20 01/28/23 History tablet (Nitrostat) sodium polystyrene sulfonate 15 15 g (60 mL) PO BID 5 days #600 mL 10/22/20 01/28/23 Rx gram/60 mL oral suspension posaconazole 200 mg/5 mL (40 200 mg (5 mL) PO TID 90 days 03/20/21 01/28/23 Rx mg/mL) oral suspension #1,350 mL blood-glucose meter (OneTouch #1 ea 05/07/21 01/28/23 Rx Ultra2 Meter kit) potassium chloride 10 mEq 10 meq PO 05/14/21 01/28/23 History capsule,extended release blood sugar diagnostic (Blood #10 ea 05/22/21 01/28/23 Rx Glucose Test strips) blood sugar diagnostic (OneTouch #100 strips 09/29/21 01/28/23 Rx Ultra Test strips) diltiazem HCl 180 mg See Rx Instructions .Route 02/19/22 01/28/23 Rx capsule,extended release 24 hr .COMPLEX #90 caps albuterol sulfate 2.5 mg/3 mL See Rx Instructions .Route 07/16/22 01/28/23 Rx (0.083 %) solution for nebulization .COMPLEX #180 mL bisoprolol fumarate 10 mg tablet See Rx Instructions .Route 07/27/22 01/28/23 Rx .COMPLEX #60 tabs atorvastatin 40 mg tablet See Rx Instructions .Route 08/20/22 01/28/23 Rx .COMPLEX #90 tabs ergocalciferol (vitamin D2) 1,250 See Rx Instructions .Route 08/20/22 01/28/23 Rx mcg (50,000 unit) capsule .COMPLEX #12 caps furosemide 80
--- NOTE | 2023-01-28 17:19 | ECG_ITS ---
APPROVED REPORT Exam: Resting ECG HR:79 bpm ECG Measurements Heart Rate 79 AXES PA 141 P 81 QRSd 89 QRS 81 QT 372 T 79 QTc 407 Conclusion SINUS RHYTHM NORMAL ECG UNCONFIRMED REPORT Electronically signed by : Al Quinones MD 01/29/2023 11:21:53
[2023-01-28 17:22] LABS: Troponin I < 0.01 ng/ml (0.00-0.034)
[2023-01-28 17:27] LABS: Hypochromasia 1+; Lymphocytes % 5 % (10-50); Monocytes % 4 % (2-9); Neutrophils % 91 % (42-76); Platelet Estimate Slight Increase; Total Cells Counted 100
[2023-01-28 17:56] LABS: Hemoglobin A1C 6.2 % (4.0-6.0)
[2023-01-28 18:05] LABS: Coronavirus 19, PCR Not Detected (NotDetected); Influenza A, PCR Not Detected (NotDetected); Influenza B, PCR Not Detected (NotDetected)
[2023-01-28 18:07] LABS: VBG Base Excess -0.2 mmol/L (-2.4-2.3); VBG Oxygen Saturation 97.2 % (50-70); VBG PCO2 43.6 mmol/L (35-51); VBG PH 7.38 mmol/L (7.31-7.41); VBG PO2 97.8 mmol/L (28-40); VBG Total CO2 26.3 mmol/L (23-27)
--- NOTE | 2023-01-28 18:10 | PC.NURSE ---
supper tray ordered for patient
[2023-01-28 18:24] VITALS: BP 130/65; PULSE 74; RESP 16; TEMP 36.6; O2SAT 100
[2023-01-28 18:24] LABS: Thyroid Stimulating Hormone 0.96 uIU/mL (0.465-4.68)
--- NOTE | 2023-01-28 18:32 | PC.NURSE ---
arrived to floor by w/c from ED
[2023-01-28 18:36] VITALS: BP 130/65; PULSE 71; RESP 16; TEMP 36.8; O2SAT 100; BMI 27.6
[2023-01-28 20:00] VITALS: BP 114/48; PULSE 77; RESP 19; TEMP 36.5; O2SAT 100
[2023-01-28 20:14] LABS: Troponin I < 0.01 ng/ml (0.00-0.034)
--- NOTE | 2023-01-28 20:40 | PC.NURSE ---
posaconazole not with patients home meds. nicolle haynes notified. family will need to bring in. needs refrigeration.
[2023-01-28 22:35] LABS: POC Glucose,Bedside 230 (70-110)
[2023-01-28 23:38] LABS: Troponin I < 0.01 ng/ml (0.00-0.034)
[2023-01-28 23:55] VITALS: O2SAT 97
[2023-01-29] VITALS (11 sets, daily range): BP systolic 129–149; BP diastolic 58–78; PULSE 75–92; RESP 18–20; TEMP 36.4–36.9; O2SAT 97–98; BMI 29.8
--- NOTE | 2023-01-29 03:44 | PC.NURSE ---
AT 2200 PATIENT FINALLY ALERT AND SPEECH NOT SLURRED. WANTED TO KNOW WHAT WE GAVE HER TO DOPE HER UP. INFORMED HER IT WAS HER HIGH C02. NUMEROUS COMPLAINTS. SAYS SHE IS TIRED OF BEING STUCK FOR LABS AND NEEDS A PICC OR A PORT. MISSED SUPPER AND WANTS DINING ROOM TO BRING HER FOOD. WAS GIVEN SOME PUDDING AND DIET SODA. ACCUSED STAFF OF TRYING TO KILL HER BY RUNNING AZITHROMYCIN AT 250/HR F/B LR BOLUS 500 ML AT 250 /HR (WAS SUPPOSED TO RUN AT 999/HR BUT RUN SLOWER DUE TO PATIENTS COMPLAINTS). WANTS FUTURE IVFs TO RUN SLOW. WANTS DIEURETICS. WANTS NASAL SPRAY FOR HER SINUS INFECTION. SAYS BIPAP IS ONLY THING THAT WILL HELP HER . WANTS MUCOMYST NEBS. KRISHNA RANDHAWA WAS NOTIFIED OF PATIENTS COMPLAINTS AND SYDNEE CAME AND SPOKE WITH HER. AT 0330 PATIENT WANTED HER INHALERS. KRISHNA RANDHAWA NOTIFIED.
[2023-01-29 05:17] LABS: POC Glucose,Bedside 205 (70-110)
[2023-01-29 06:50] LABS: Basophils % 0.1 % (0.1-2.0); Chloride 94 mmol/L (98-107); Eosinophils % 0.3 % (0.1-12.0); Hemoglobin 11.1 g/dL (12.2-16.2); Lymphocytes # 0.5 K/mm3 (0.7-4.5); Lymphocytes % 3.9 % (10-50); Mean Corpuscular HGB Conc 30.8 g/dL (31.8-35.4); Mean Corpuscular Hemoglobin 25.8 pg (27.0-31.2); Mean Corpuscular Volume 83.6 fl (81-99); Mean Platelet Volume 7.8 fl (7.4-10.4); Monocytes # 0.4 K/mm3 (0.1-1.0); Monocytes % 3.1 % (1.7-9.3); Neutrophils # 10.9 K/mm3 (1.8-7.8); Neutrophils % 92.7 % (37.0-80.0); Platelet Count 388 K/mm3 (142-424); Red Cell Distribution Width 16.9 % (11.5-17.5); White Blood Count 11.8 K/mm3 (4.8-10.8)
[2023-01-29 06:51] LABS: Potassium 4.3 mmoL/L (3.5-5.1); Sodium 132 mmol/L (136-145)
[2023-01-29 06:53] LABS: Blood Urea Nitrogen 17 mg/dl (7-17); Creatinine Clearance Estimated 78 mL/min (50-200)
[2023-01-29 06:54] LABS: Alanine Aminotransferase 27 U/L (12-78); Albumin Level 3.6 g/dl (3.5-5.0); Albumin/Globulin Ratio 1.3 (1.1-1.8); Alkaline Phosphatase 90 U/L (38-126); Anion Gap 12.3 mEq/L (5-15); Aspartate Amino Transferase 31 U/L (14-36); Calcium 8.6 mg/dl (8.4-10.2); Carbon Dioxide 30 mmol/L (22.0-30.0); Estimated Glomerular Filt Rate 63 ml/min (>60); GFR (African American) 77 ML/MIN (>60); Globulin 2.7 g/dL (1.3-3.2); Glucose 160 mg/dl (74-100); Magnesium 2.6 mg/dl (1.6-2.3); Total Protein,Serum 6.3 g/dl (6.3-8.2)
[2023-01-29 06:56] LABS: Bilirubin,Total < 0.1 mg/dl (0.2-1.3)
[2023-01-29 07:03] LABS: MANUAL DIFFERENTIAL MANUAL DIFFERENTIAL (MANUAL DIFF)
[2023-01-29 08:34] LABS: Lymphocytes % 5 % (10-50); Monocytes % 3 % (2-9); Neutrophils % 92 % (42-76); Platelet Estimate Normal; RBC Morphology Normal; Total Cells Counted 100
[2023-01-29 10:12] LABS: ABG Base Excess 2.5 mmol/L (-2.4-2.3); ABG HCO3 26.9 mmhg (22.0-26.0); ABG Oxygen Saturation 96 % (90-100); ABG PCO2 41.9 mmhg (35.0-45.0); ABG PH 7.43 mmol/L (7.35-7.45); ABG PO2 78.7 mmhg (80-100); ABG TCO2 28.2 mmhg (23-27); Allen's Test Acceptable; Oxygen 4 L NC %
[2023-01-29 10:13] LABS: Source Right Radial
[2023-01-29 11:46] LABS: POC Glucose,Bedside 175 (70-110)
[2023-01-29 16:44] LABS: POC Glucose,Bedside 164 (70-110)
--- NOTE | 2023-01-29 17:45 | EXP.ACUTE.PN ---
Subjective *Date: 01/29/23 *Time: 17:55 Interval history: Patient requesting Mucomyst nebulization treatments, and states shortness of breath slightly improving during hospitalization. Patient also requesting scheduled nebulization treatments at acute 4-hour intervals. Patient informed she cannot leave floor unaccompanied due to oxygen requirement of 4 L or more. Patient evaluated for BiPAP therapy at her request, but ABG done today showed no indication for BiPAP placement, plus patient in no respiratory distress. Very pleasant and energetic during multiple interviews with Dr. Holt throughout the day. Medical Exam Vital signs and Labs for Last 24 Hours: Vital Signs Temp Pulse Pulse Resp BP BP Pulse Ox 01/29/23 14:59 97.8 F 87 18 129/68 98 01/29/23 12:23 80 01/29/23 12:23 83 01/29/23 12:23 98 01/29/23 11:00 98.2 F 77 18 144/78 H 98 01/29/23 07:32 98.0 F 82 18 133/76 98 01/29/23 06:10 83 01/29/23 06:10 80 01/29/23 06:10 98 01/29/23 04:00 97.6 F 75 19 130/58 L 97 01/29/23 00:43 77 01/29/23 00:43 79 01/28/23 23:55 97 01/28/23 20:00 100 01/28/23 20:00 97.7 F 77 19 114/48 L 100 01/28/23 18:24 97.8 F 74 16 130/65 01/28/23 18:36 98.3 F 71 16 130/65 100 Intake and Output 01/29/23 01/29/23 01/29/23 07:59 15:59 23:59 Intake Total 1350 / 1830 360 / 1830 120 / 1830 Output Total 1 601 600 / 601 Balance 1349 / 1229 -240 / 1229 120 / 1229 Intake: Intake, Oral Amount 360 / 840 360 / 840 120 / 840 Intake, Oral Supplement Amount 240 / 240 Intake, Total IV Amount 750 / 750 Azithromycin 500 mg In 0.9 % 250 / 250 Sodium Chloride 250 ml @ 250 mls/hr IV ONCE ONE Rx#:[id number] Lactated Ringers 1000ML 500 ml 500 / 500 @ 999 mls/hr IV .Q31M [facility] Rx#: [id number] Output: Output, Urine Amount 601 600 / 601 Other: Number of Unmeasured Voids 1 0 Weight 86.228 kg Patient Weight 01/29/23 23:59 Weight 86.228 kg Laboratory Results - last 24 hr 01/28/23 16:48: VBG pH 7.38, VBG pCO2 43.6, VBG pO2 97.8 H, VBG HCO3 25.0, VBG Total CO2 26.3, VBG O2 Saturation 97.2 H, VBG Base Excess -0.2 01/28/23 16:53: Hemoglobin A1c 6.2 H 01/28/23 16:53: TSH 0.96 01/28/23 17:54: Lactate 1.0 01/28/23 17:58: SARS-CoV-2 (PCR) Not detected, Influenza A Untype (PCR) Not detected, Influenza Type B (PCR) Not detected 01/28/23 19:30: Troponin I < 0.01 01/28/23 22:27: POC Glucose 230 H 01/28/23 23:00: Troponin I < 0.01 01/29/23 05:10: POC Glucose 205 H 01/29/23 06:25: WBC 11.8 H D, RBC 4.30, Hgb 11.1 L, Hct 36.0 L, MCV 83.6, MCH 25.8 L, MCHC 30.8 L, RDW 16.9, Plt Count 388, MPV 7.8, Neut % (Auto) 92.7 H, Lymph % (Auto) 3.9 L, [place] % (Auto) 3.1, Eos % (Auto) 0.3, Baso % (Auto) 0.1, Neut # (Auto) 10.9 H, Lymph # (Auto) 0.5 L, [place] # (Auto) 0.4, Eos # (Auto) 0.0, Baso # (Auto) 0.0, Total Counted 100, Neutrophils % (Manual) 92 H, Lymphocytes % (Manual) 5 L, Monocytes % (Manual) 3, Platelet Estimate Normal, RBC Morphology Normal 01/29/23 06:25: Sodium 132 L, Potassium 4.3, Chloride 94 L, Carbon Dioxide 30, Anion Gap 12.3, BUN 17, Creatinine 0.90, Estimated Creat Clear 78, Estimated GFR 63, Est GFR ( Amer) 77, Glucose 160 H, Calcium 8.6, Magnesium 2.6 H, Total Bilirubin < 0.1 L, AST 31, ALT 27 D, Alkaline Phosphatase 90, Total Protein 6.3, Albumin 3.6 D, Globulin 2.7, Albumin/Globulin Ratio 1.3 01/29/23 09:47: Specimen Source Right radial, O2 % 4 l nc, ABG pH 7.43, ABG pCO2 41.9, ABG pO2 78.7 L, ABG HCO3 26.9 H, ABG Total CO2 28.2 H, ABG O2 Saturation 96, ABG Base Excess 2.5 H, Robbin Test Acceptable 01/29/23 11:35: POC Glucose 175 H 01/29/23 16:36: POC Glucose 164 H I & O for Labs for Last 24 Hours: Intake & Output 01/26/23 01/27/23 01/28/23 01/29/23 23:59 23:59 23:59 23:59 Intake Total 480 / 1470 1830 / 1830 Output Total 601 / 601 Balance 480 / 1470 1229 / 122
--- NOTE | 2023-01-29 18:02 | PC.NURSE ---
pt has done well through out the day. She has tolerated nasal cannula. Denies any episodes of SOA. She spoke with the MD regarding home medications which will be reordered per his discretion.
[2023-01-30] VITALS (12 sets, daily range): BP systolic 130–152; BP diastolic 64–88; PULSE 78–90; RESP 16–20; TEMP 36.7–37.1; O2SAT 95–100; BMI 30.7
[2023-01-30 00:08] LABS: POC Glucose,Bedside 198 (70-110)
--- NOTE | 2023-01-30 05:02 | PC.NURSE ---
Patient has had no issues overnight. Has drank multiple cups of coffee. no issues were stated by patient. Patient remains on O2, and is AxO x4.
[2023-01-30 06:29] LABS: POC Glucose,Bedside 191 (70-110)
--- NOTE | 2023-01-30 08:18 | PC.NURSE ---
turned pts oxygen down to 2lnc. Saturation 96%
[2023-01-30 08:31] LABS: Eosinophils % 0.1 % (0.1-12.0); Hematocrit 36.6 % (37.0-47.0); Hemoglobin 11.2 g/dL (12.2-16.2); Lymphocytes # 0.8 K/mm3 (0.7-4.5); Lymphocytes % 6.3 % (10-50); Mean Corpuscular HGB Conc 30.7 g/dL (31.8-35.4); Mean Corpuscular Hemoglobin 25.6 pg (27.0-31.2); Mean Corpuscular Volume 83.4 fl (81-99); Mean Platelet Volume 8.2 fl (7.4-10.4); Monocytes % 7.3 % (1.7-9.3); Neutrophils # 11.5 K/mm3 (1.8-7.8); Neutrophils % 86.3 % (37.0-80.0); Platelet Count 412 K/mm3 (142-424); Red Blood Count 4.39 M/mm3 (4.20-5.40); Red Cell Distribution Width 16.8 % (11.5-17.5); White Blood Count 13.3 K/mm3 (4.8-10.8)
[2023-01-30 08:33] LABS: MANUAL DIFFERENTIAL MANUAL DIFFERENTIAL (MANUAL DIFF)
[2023-01-30 08:36] LABS: Chloride 94 mmol/L (98-107); Sodium 132 mmol/L (136-145)
[2023-01-30 08:37] LABS: Potassium 4.7 mmoL/L (3.5-5.1)
[2023-01-30 08:39] LABS: Blood Urea Nitrogen 20 mg/dl (7-17); Creatinine Clearance Estimated 81 mL/min (50-200); Estimated Glomerular Filt Rate 72 ml/min (>60); GFR (African American) 88 ML/MIN (>60)
[2023-01-30 08:40] LABS: Anion Gap 12.7 mEq/L (5-15); Calcium 8.6 mg/dl (8.4-10.2); Carbon Dioxide 30 mmol/L (22.0-30.0); Glucose 155 mg/dl (74-100); Magnesium 2.3 mg/dl (1.6-2.3)
[2023-01-30 09:01] LABS: Lymphocytes % 4 % (10-50); Monocytes % 3 % (2-9); Neutrophils % 93 % (42-76); Total Cells Counted 100
[2023-01-30 09:02] LABS: Anisocytosis 1+; Hypochromasia 1+; Macrocytosis 1+; Ovalocytes 1+; Platelet Estimate Slight Increase
--- NOTE | 2023-01-30 10:33 | PC.NURSE ---
pts saturation on 2lnc is in the mid 90s. She refused to leave oxygen on 2lnc. wants 3lnc states thats what she is on @ home.
--- NOTE | 2023-01-30 12:23 | EXP.ACUTE.PN ---
Subjective *Date: 01/30/23 *Time: 12:23 Medical Exam Vital signs and Labs for Last 24 Hours: Vital Signs Temp Pulse Pulse Resp BP Pulse Ox FiO2 01/30/23 10:47 98.0 F 83 16 146/71 H 96 01/30/23 09:50 78 01/30/23 09:50 84 01/30/23 08:00 96 01/30/23 07:41 98.2 F 84 16 130/88 96 01/30/23 06:21 87 01/30/23 06:21 85 01/30/23 06:21 98 01/30/23 04:00 98.2 F 79 20 152/69 H 100 01/29/23 22:18 87 01/29/23 22:18 83 01/29/23 20:00 98.4 F 92 H 20 149/71 H 98 01/29/23 18:32 36 01/29/23 18:32 83 01/29/23 18:31 81 01/29/23 14:59 97.8 F 87 18 129/68 98 Intake and Output 01/29/23 01/30/23 01/30/23 23:59 07:59 15:59 Intake Total 120 / 2070 420 / 420 Output Total 0 / 601 0 / 0 0 / 0 Balance 120 / 1469 420 / 420 0 / 420 Intake: Intake, Oral Amount 120 / 1080 420 / 420 Output: Output, Urine Amount 0 / 601 0 / 0 0 / 0 Other: Number of Unmeasured Voids 1 1 1 Weight 88.632 kg Patient Weight 01/30/23 23:59 Weight 88.632 kg Laboratory Results - last 24 hr 01/29/23 16:36: POC Glucose 164 H 01/29/23 20:40: POC Glucose 198 H 01/30/23 06:06: POC Glucose 191 H 01/30/23 07:28: WBC 13.3 H, RBC 4.39, Hgb 11.2 L, Hct 36.6 L, MCV 83.4, MCH 25.6 L, MCHC 30.7 L, RDW 16.8, Plt Count 412, MPV 8.2, Neut % (Auto) 86.3 H, Lymph % (Auto) 6.3 L, [place] % (Auto) 7.3, Eos % (Auto) 0.1, Baso % (Auto) 0.0 L, Neut # (Auto) 11.5 H, Lymph # (Auto) 0.8, [place] # (Auto) 1.0, Eos # (Auto) 0.0, Baso # (Auto) 0.0, Total Counted 100, Neutrophils % (Manual) 93 H, Lymphocytes % (Manual) 4 L, Monocytes % (Manual) 3, Platelet Estimate Slight increase, Hypochromasia 1+, Anisocytosis 1+, Macrocytosis 1+, Ovalocytes 1+ 01/30/23 07:28: Sodium 132 L, Potassium 4.7, Chloride 94 L, Carbon Dioxide 30, Anion Gap 12.7, BUN 20 H, Creatinine 0.80, Estimated Creat Clear 81, Estimated GFR 72, Est GFR ( Amer) 88, Glucose 155 H, Calcium 8.6 01/30/23 07:28: Magnesium 2.3 D I & O for Labs for Last 24 Hours: Intake & Output 01/27/23 01/28/23 01/29/23 01/30/23 23:59 23:59 23:59 23:59 Intake Total 480 / 1470 1830 / 2070 420 / 420 Output Total 601 / 601 0 / 0 Balance 480 / 1470 1229 / 1469 420 / 420 Weight 80.087 kg 86.228 kg 88.632 kg Microbiology Reports for the Last 24 Hours: Microbiology 01/29/23 06:20 Sputum - Expectorated Sputum Gram Stain - Final
--- NOTE | 2023-01-30 12:24 | EXP.PN ---
Subjective *Date: 01/30/23 *Time: 12:32 Interval history: Patient reports slightly improved shortness of breath versus yesterday. Patient weaned from 4 L to 2 L nasal cannula. Patient however complains of dyspnea on exertion, and breathlessness on 2 L nasal cannula, so increased to 3 L nasal cannula. Patient also noted to be slightly unsteady on her feet. Pleasant and talking on phone at time of evaluation by Dr. Holt today. Exam Data for Last 24 hours Vital signs and Labs for Last 24 Hours: Temp Pulse Resp BP Pulse Ox FiO2 98.0 F 83 16 146/71 H 96 36 01/30/23 10:47 01/30/23 10:47 01/30/23 10:47 01/30/23 10:47 01/30/23 10:47 01/29/23 18:32 Laboratory Results - last 24 hr 01/29/23 16:36: POC Glucose 164 H 01/29/23 20:40: POC Glucose 198 H 01/30/23 06:06: POC Glucose 191 H 01/30/23 07:28: WBC 13.3 H, RBC 4.39, Hgb 11.2 L, Hct 36.6 L, MCV 83.4, MCH 25.6 L, MCHC 30.7 L, RDW 16.8, Plt Count 412, MPV 8.2, Neut % (Auto) 86.3 H, Lymph % (Auto) 6.3 L, [place] % (Auto) 7.3, Eos % (Auto) 0.1, Baso % (Auto) 0.0 L, Neut # (Auto) 11.5 H, Lymph # (Auto) 0.8, [place] # (Auto) 1.0, Eos # (Auto) 0.0, Baso # (Auto) 0.0, Total Counted 100, Neutrophils % (Manual) 93 H, Lymphocytes % (Manual) 4 L, Monocytes % (Manual) 3, Platelet Estimate Slight increase, Hypochromasia 1+, Anisocytosis 1+, Macrocytosis 1+, Ovalocytes 1+ 01/30/23 07:28: Sodium 132 L, Potassium 4.7, Chloride 94 L, Carbon Dioxide 30, Anion Gap 12.7, BUN 20 H, Creatinine 0.80, Estimated Creat Clear 81, Estimated GFR 72, Est GFR ( Amer) 88, Glucose 155 H, Calcium 8.6 06/18/23 07:28: Magnesium 2.3 D I & O for Last 24 hours: Intake & Output 01/27/23 01/28/23 01/29/23 01/30/23 23:59 23:59 23:59 23:59 Intake Total 480 / 1470 1830 / 2070 420 / 420 Output Total 601 / 601 0 / 0 Balance 480 / 1470 1229 / 1469 420 / 420 Weight 80.087 kg 86.228 kg 88.632 kg Microbiology Reports for the Last 24 Hours: Microbiology 01/29/23 06:20 Sputum - Expectorated Sputum Gram Stain - Final Constitutional Constitutional: no acute distress and cooperative *Routine HEENT Exam Head: Present normocephalic Eye: Present EOMI and normal accommodation ENT: Present mucous membranes moist *Routine Neck Exam Neck: Present supple and full ROM Routine Chest/Breast/Axilla Exam Chest wall: Absent tenderness *Routine Respiratory Exam Respiratory: Present decreased breath sounds, prolonged expiratory phase and diminished air movement *Routine Cardiovascular Exam Cardiovascular: Present RRR, Normal S1 and Normal S2 *Routine Abdominal Exam Abdominal: Present soft and normoactive bowel sounds; Absent rebound or guarding *Routine Rectal Exam Comments: deferred *Routine Exam Comments: deferred *Routine Extremities Exam Extremities: Present full ROM *Routine Skin Exam Skin: Present intact and dry *Routine Neurological Exam Neurological: Present alert and oriented X3 Assessment and Plan *Assessment and plan (1) Acute exacerbation of chronic obstructive pulmonary disease: Status: Acute Category: Medical Code(s): J44.1 - Chronic obstructive pulmonary disease with (acute) exacerbation (2) Pneumonia: Status: Acute Category: Medical Code(s): J18.9 - Pneumonia, unspecified organism (3) CAD (coronary artery disease): Status: Acute Category: Medical Code(s): I25.10 - Atherosclerotic heart disease of tribal coronary artery without angina pectoris (4) HTN (hypertension): Status: Acute Category: Medical Code(s): I10 - Essential (primary) hypertension (5) HLD (hyperlipidemia): Status: Acute Qualifiers: Hyperlipidemia type: unspecified Qualified Code(s): E78.5 - Hyperlipidemia, unspecified Category: Medical Code(s): E78.5 - Hyperlipidemia, unspecified (6) Oxygen dependent: Status: Chronic Category: Medical Code(s): Z99.81 - Dependence on supplemental
[2023-01-30 12:47] LABS: POC Glucose,Bedside 175 (70-110)
[2023-01-30 17:03] LABS: POC Glucose,Bedside 164 (70-110)
[2023-01-30 20:34] LABS: POC Glucose,Bedside 199 (70-110)
[2023-01-31 04:00] VITALS: BP 148/79; PULSE 77; RESP 20; TEMP 36.6; O2SAT 97; BMI 30.4
[2023-01-31 06:15] VITALS: PULSE 77; O2SAT 94
[2023-01-31 06:17] LABS: POC Glucose,Bedside 174 (70-110)
[2023-01-31 06:18] LABS: Basophils % 0.2 % (0.1-2.0); Eosinophils % 0.3 % (0.1-12.0); Hematocrit 36.9 % (37.0-47.0); Hemoglobin 11.8 g/dL (12.2-16.2); Lymphocytes # 2.5 K/mm3 (0.7-4.5); Lymphocytes % 19.8 % (10-50); Mean Corpuscular Hemoglobin 25.9 pg (27.0-31.2); Mean Corpuscular Volume 80.9 fl (81-99); Mean Platelet Volume 7.6 fl (7.4-10.4); Monocytes # 1.2 K/mm3 (0.1-1.0); Monocytes % 9.5 % (1.7-9.3); Neutrophils # 8.9 K/mm3 (1.8-7.8); Neutrophils % 70.2 % (37.0-80.0); Platelet Count 400 K/mm3 (142-424); Red Blood Count 4.57 M/mm3 (4.20-5.40); Red Cell Distribution Width 16.4 % (11.5-17.5); White Blood Count 12.7 K/mm3 (4.8-10.8)
[2023-01-31 06:22] LABS: Chloride 90 mmol/L (98-107); Sodium 130 mmol/L (136-145)
[2023-01-31 06:23] LABS: Potassium 4.5 mmoL/L (3.5-5.1)
[2023-01-31 06:25] LABS: Blood Urea Nitrogen 18 mg/dl (7-17); Creatinine Clearance Estimated 80 mL/min (50-200); Estimated Glomerular Filt Rate 63 ml/min (>60); GFR (African American) 77 ML/MIN (>60)
--- NOTE | 2023-01-31 06:25 | INFXCTL.NOTE ---
Patient has walked in the hallway multiple times tonight and has stood in the hallway. Patient did not seem unsteady on her feet nor complained about being short of air. Patient has had no complaints overnight.
[2023-01-31 06:26] LABS: Anion Gap 10.5 mEq/L (5-15); Calcium 8.7 mg/dl (8.4-10.2); Carbon Dioxide 34 mmol/L (22.0-30.0); Glucose 148 mg/dl (74-100)
--- NOTE | 2023-01-31 07:43 | PC.NURSE ---
pt walked out in the hallway and asked for box of tissues. tech took a box to pt, no other needs at this time.
[2023-01-31 08:00] VITALS: BP 141/73; PULSE 74; RESP 20; TEMP 36.5; O2SAT 96
--- NOTE | 2023-01-31 09:42 | EXP.DC.SUM ---
General Admission date:: 01/28/23 Discharge date: 01/31/23 HPI HPI HPI: Ms. Dick is a 62-year-old female with COPD, tobacco use disorder, hypertension, history of histoplasmosis, who continues to smoke. She presented to the ER after being sent by her primary care doctor due to increased shortness of breath, oxygen requirement, and respiratory symptoms. States that she has been sick for the last month with increasing shortness of breath, wheezing, sputum production and has been on at least 2 rounds of antibiotics with failure of outpatient therapy. Presented to [facility] yesterday where they wanted to admit her but there were no beds available. Denies any nausea, vomiting, confusion. Does have some chest wall discomfort from coughing. States her lungs hurt . Normally on 3 L oxygen, has required 4 to 5 L of oxygen over the past few days. Sats at home have been dropping into the high 70s low 80s. Discussed case with patient's primary care and recommended he send her to the ER for evaluation. Discussed case with the ER physician, concerning findings of leukocytosis and increased oxygen requirement with failure of outpatient therapy. Agreed with admission. On evaluation, she is chronically ill-appearing. Satting low 90s on 4 L oxygen. Has a nonproductive cough. Hemodynamically stable Hospital Course Hospital Course Hospital Course: Patient with shortness of breath diagnosed with COPD exacerbation secondary to pneumonia and admitted to [facility]. Patient received IV azithromycin/Rocephin, glucocorticoids, and nebulization treatments during hospitalization. Patient also received physical therapy/Occupational Therapy services during hospitalization. Patient steadily improved on beforementioned treatment modalities, and by 01/31/2023 was appropriate for outpatient management of COPD/pneumonia. Patient steadily weaned from 4 to 5 L at time of admission to 2 to 3 L by time of hospital discharge. Of special note, patient's baseline oxygen requirement is 2 to 3 L. Patient discharged on short 2-day prednisone 20 mg taper, Omnicef x5 days, azithromycin x1 day, and with all home nebulization medications refilled day of discharge by Dr. Holt. Patient advised to follow-up with primary care physician within 1 week of hospital disposition. Patient also advised to follow-up with pulmonary within 2 weeks of hospital disposition. Exam Data for Last 24 hours Vital signs and Labs for Last 24 Hours: Temp Pulse Resp BP Pulse Ox FiO2 97.7 F 74 20 141/73 H 96 32 01/31/23 08:00 01/31/23 08:00 01/31/23 08:00 01/31/23 08:00 01/31/23 08:00 01/30/23 19:33 Laboratory Results - last 24 hr 01/30/23 12:35: POC Glucose 175 H 01/30/23 16:39: POC Glucose 164 H 01/30/23 19:58: POC Glucose 199 H 01/31/23 05:50: Magnesium 2.0 D 01/31/23 05:50: WBC 12.7 H, RBC 4.57, Hgb 11.8 L, Hct 36.9 L, MCV 80.9 L, MCH 25.9 L, MCHC 32.0, RDW 16.4, Plt Count 400, MPV 7.6, Neut % (Auto) 70.2, Lymph % (Auto) 19.8, [place] % (Auto) 9.5 H, Eos % (Auto) 0.3, Baso % (Auto) 0.2, Neut # (Auto) 8.9 H, Lymph # (Auto) 2.5, [place] # (Auto) 1.2 H, Eos # (Auto) 0.0, Baso # (Auto) 0.0 01/31/23 05:50: Sodium 130 L, Potassium 4.5, Chloride 90 L, Carbon Dioxide 34 H, Anion Gap 10.5, BUN 18 H, Creatinine 0.90, Estimated Creat Clear 80, Estimated GFR 63, Est GFR ( Amer) 77, Glucose 148 H, Calcium 8.7 01/31/23 06:05: POC Glucose 174 H I & O for Last 24 hours: Intake & Output 01/28/23 01/29/23 01/30/23 01/31/23 23:59 23:59 23:59 23:59 Intake Total 480 / 1470 1830 / 2070 780 / 1260 720 / 720 Output Total 601 / 601 60 / 60 0 / 0 Balance 480 / 1470 1229 / 1469 720 / 1200 720 / 720 Weight 80.087 kg 86.228 kg 88.632 kg 87.997 kg Microbiology Reports for the Last 24 Hours: Microbiology 01/29/23 06:20 Sputum - Expectorated Sputum Gram Stain - Final 01/29/23 06:20 Sputum - Expectorated Sputum Sputum Culture - Preliminary 01/28/23 19:30 Blood Blood Culture - P
--- NOTE | 2023-01-31 10:23 | HMH.OTEV ---
OT Inpatient Evaluation Rehab OT IP Evaluation Start: 01/30/23 17:20 Freq: ONCE Status: Active Protocol: Document 01/31/23 10:10 KVNG (Rec: 01/31/23 10:23 KVNG [id number]) Rehab OT IP Assessment Subjective History Ms. Dick is a 62-year-old female with COPD, tobacco use disorder, hypertension, history of histoplasmosis, who continues to smoke. She presented to the ER after being sent by her primary care doctor due to increased shortness of breath, oxygen requirement, and respiratory symptoms. States that she has been sick for the last month with increasing shortness of breath, wheezing, sputum production and has been on at least 2 rounds of antibiotics with failure of outpatient therapy. Presented to [place] yesterday where they wanted to admit her but there were no beds available. Denies any nausea, vomiting, confusion. Does have some chest wall discomfort from coughing. States her lungs hurt . Normally on 3 L oxygen , has required 4 to 5 L of oxygen over the past few days. Sats at home have been dropping into the high 70s low 80s. Discussed case with patient's primary care and recommended he send her to the ER for evaluation. Discussed case with the ER physician, concerning findings of leukocytosis and increased oxygen requirement with failure of outpatient therapy. Agreed with admission. On evaluation, she is chronically ill-appearing. Satting low 90s on 4 L oxygen. Has a nonproductive cough. Hemodynamically stable. Patient lives alone in 1 story
--- NOTE | 2023-01-31 10:34 | PC.NURSE ---
dc instruction went over with pt, give home meds back, pt states she wants to speak with md before leaving. md notified. pt waiting on ride.
--- NOTE | 2023-01-31 11:01 | SW/DCPLANNER ---
Addendum entered by Adriana Turner 01/31/23 12:55: Nemesio vincent/ [facility] stated that services will begin this week for this patient. Original Note: PT/OT evaluated this patient and recommended home health services. Patient resides in [facility] and [facility] is able to provide some home health services to Medicaid patient's at this time. Patient is agreeable to [facility] and patient information/order has been faxed at this time. Patient will discharge home today. I will follow up with [facility] once patient information/order is reviewed.
--- NOTE | 2023-01-31 11:13 | HMH.PTEV ---
Physical Therapy Evaluation Rehab PT IP Evaluation Start: 01/30/23 12:25 Freq: .once Status: Active Protocol: Document 01/31/23 09:50 CROWLINH (Rec: 01/31/23 11:13 ELMER [id number]) Subjective/History History History Pt is a 62 year old female that presented to ER after being sent by her PCP due to increased dyspnea, increased oxygen requirement and respiratory symptoms. Pt reported that she had been feeling sick for the last month with increasing shortness of breath, wheezing, sputum production and has been on at least 2 rounds of antibiotics with failure of outpatient therapy. Presented to [facility] on 01/27/2023 where they wanted to admit her but there were no beds available. Pt denied any nausea, vomiting, confusion, reported chest wall pain and stated her lungs hurt . Normally on 3 L oxygen, has required 4 to 5 L of oxygen over the past few days. Sats at home have been dropping into the high 70s low 80s. Pt was admitted for IP management due to findings of leukocytosis, increased oxygen requirement with failure of outpatient therapy. PMH: COPD, tobacco use disorder, hypertension, history of histoplasmosis Subjective Subjective Pt presented seated on EOB upon therapist arrival, agreeable to therapy initial evaluation. Pt is alert & oriented x3. Pt reports she lives at home alone in a H with 3-4 ROCK. Pt reports her sister assists in taking her to grocery store/appointments. Pt reports she has a powerhouse mechanic supervisor that will come a few times a week to assist with
--- NOTE | 2023-01-31 11:32 | PC.NURSE ---
COURTESY ROUND PATIENT AWAKE AND IN WHEELCHAIR WAITING ON RIDE TO PICK HER UP . PATIENT VOICED NO NEEDS AT THIS TIME. TRASH EMPTIED AND LINENS . CALL LIGHT WITHIN REACH
--- NOTE | 2023-02-01 15:24 | PC.NURSE ---
Follow up call with patient at this time.
== END 2023-01-31 11:49 | disposition home health service (06) | DRG 194 ==
LOC: ER 17:12 → 2ND 17:45
PROVIDERS: Internal Medicine; Admitting Provider Internal Medicine Adolescent Medicine; Emergency Provider Student in an Organized Health Care Education/Training Program; PCP Family Medicine; Visit Provider Internal Medicine Adolescent Medicine
DX: J18.9 Pneumonia, unspecified organism (principal); J44.0 Chronic obstructive pulmonary disease with (acute) lower respiratory infection; J44.1 Chronic obstructive pulmonary disease with (acute) exacerbation; E11.9 Type 2 diabetes mellitus without complications; Z99.81 Dependence on supplemental oxygen; B39.9 Histoplasmosis, unspecified; E78.5 Hyperlipidemia, unspecified; F39 Unspecified mood [affective] disorder; I25.10 Atherosclerotic heart disease of native coronary artery without angina pectoris; R53.1 Weakness
CPT/HCPCS: 36415; 71045; 71250; 80048; 80053; 82803; 82962; 83036; 83605; 83735; 84443; 84484; 85007; 85025; 87040; 87070; 87205; 87636; 93005; 94640; 94760; 94761; 97162; 97165; 99285; C9803; J0456; J0696; J3475; U0003; U0005

== ENCOUNTER → 2023-02-11 09:13 | Outpatient (CLI) | payer MEDICAID, SELFPAY ==
[2023-02-11 19:17] LABS: Basophils % 0.1 % (0.1-2.0); Eosinophils % 0.1 % (0.1-12.0); Hematocrit 38.6 % (37.0-47.0); Lymphocytes # 0.5 K/mm3 (0.7-4.5); Mean Corpuscular HGB Conc 31.1 g/dL (31.8-35.4); Mean Corpuscular Hemoglobin 25.6 pg (27.0-31.2); Mean Corpuscular Volume 82.4 fl (81-99); Mean Platelet Volume 8.9 fl (7.4-10.4); Monocytes # 0.5 K/mm3 (0.1-1.0); Monocytes % 3.1 % (1.7-9.3); Neutrophils # 16.3 K/mm3 (1.8-7.8); Neutrophils % 93.7 % (37.0-80.0); Platelet Count 371 K/mm3 (142-424); Red Blood Count 4.69 M/mm3 (4.20-5.40); Red Cell Distribution Width 16.7 % (11.5-17.5); White Blood Count 17.4 K/mm3 (4.8-10.8)
[2023-02-11 19:20] LABS: MANUAL DIFFERENTIAL MANUAL DIFFERENTIAL (MANUAL DIFF)
[2023-02-11 19:38] LABS: Alanine Aminotransferase 43 U/L (12-78); Albumin Level 4.3 g/dl (3.5-5.0); Albumin/Globulin Ratio 1.7 (1.1-1.8); Alkaline Phosphatase 112 U/L (38-126); Anion Gap 15.6 mEq/L (5-15); Aspartate Amino Transferase 32 U/L (14-36); Bilirubin,Total 0.6 mg/dl (0.2-1.3); Blood Urea Nitrogen 18 mg/dl (7-17); Calcium 9.4 mg/dl (8.4-10.2); Carbon Dioxide 33 mmol/L (22.0-30.0); Chloride 83 mmol/L (98-107); Estimated Glomerular Filt Rate 63 ml/min (>60); GFR (African American) 77 ML/MIN (>60); Globulin 2.5 g/dL (1.3-3.2); Glucose 161 mg/dl (74-100); Potassium 4.6 mmoL/L (3.5-5.1); Sodium 127 mmol/L (136-145); Total Protein,Serum 6.8 g/dl (6.3-8.2)
[2023-02-11 22:26] LABS: Eosinophils % 1 % (0-3); Hypochromasia 2+; Lymphocytes % 6 % (10-50); Monocytes % 1 % (2-9); Neutrophils % 92 % (42-76); Platelet Estimate Normal; Total Cells Counted 100
[2023-02-11 22:27] LABS: Ovalocytes 1+
== END ==
PROVIDERS: PCP Family Medicine; Visit Provider Family Medicine
DX: E78.5 Hyperlipidemia, unspecified (principal)
CPT/HCPCS: 80053; 85007; 85025

== ENCOUNTER → 2023-02-22 14:10 | Outpatient (CLI) | payer MEDICAID, SELFPAY ==
[2023-02-22 16:58] LABS: C-Reactive Protein 1.3 mg/L (0-4)
[2023-02-24 19:45] LABS: QuantiFERON-TB Gold Plus Negative (Negative)
[2023-02-27 17:32] LABS: Aspergillus flavus Negative (Neg:<1:1); Aspergillus fumigatus Negative (Neg:<1:1); Aspergillus niger Negative (Neg:<1:1); Blastomyces Antibody Negative (Neg:<1:1)
[2023-02-28 17:11] LABS: Alpha-1-Antitrypsin 149 mg/dL (101-187)
== END ==
PROVIDERS: PCP Family Medicine; Visit Provider Internal Medicine Pulmonary Disease
DX: J98.4 Other disorders of lung (principal); J84.10 Pulmonary fibrosis, unspecified
CPT/HCPCS: 36415; 82103; 82104; 86140; 86480; 86606; 86612